=== PATIENT | female | born 1975 ===

== ENCOUNTER 2018-07-25 17:28 | Emergency (ER) | payer MEDICAID ==
[2018-07-25 17:28] VITALS: BMI 26.7
[2018-07-25 17:35] VITALS: BP 139/86; PULSE 111; RESP 12; TEMP 99.1; O2SAT 98
--- NOTE | 2018-07-25 18:52 | ED PDOC ---
Lower Extremity Pain/Injury Time Seen by Provider: 07/25/18 17:36 Chief Complaint (Nursing): Trauma Chief Complaint (Provider): fall injuries History Per: Patient History/Exam Limitations: no limitations Onset/Duration Of Symptoms: Hrs (today) Additional Complaint(s): Tara Garcia is a 43 year old female, with no significant past medical history, who presents to the emergency department after tripping on uneven pavement and fell forward. Pt. now complaining of neck pain, right shoulder pain, right chest wall pain and right knee pain. Pt. had some lower abdominal discomfort initially but improved. She denies any LOC, hip pain or other injuries. No further medical complaints. PMD: None provided. Past Medical History Reviewed: Historical Data, Nursing Documentation, Vital Signs Vital Signs: Last Vital Signs Temp 99.1 F 07/25/18 17:31 Pulse 111 H 07/25/18 17:31 Resp 12 07/25/18 17:31 BP 139/86 07/25/18 17:31 Pulse Ox 98 07/25/18 17:31 - Medical History PMH: Migraine - Surgical History Surgical History: No Surg Hx - Family History Family History: States: Unknown Family Hx - Immunization History Hx Tetanus Toxoid Vaccination: No Hx Influenza Vaccination: No Hx Pneumococcal Vaccination: Yes - Home Medications Home Medications: Ambulatory Orders Medication Instructions Recorded Cyclobenzaprine [Cyclobenzaprine 10 mg PO BID PRN #15 tab 05/13/17 HCl] Naproxen [Naprosyn Tab] 375 mg PO BID PRN #20 tab 05/13/17 Ibuprofen [Motrin] 600 mg PO Q8 #30 tab 03/08/18 Metoclopramide [Reglan] 1 tab PO TID PRN #25 tab 03/08/18 Ibuprofen [Motrin Tab] 600 mg PO Q8 #15 tab 07/25/18 - Allergies Allergies/Adverse Reactions: Allergies Allergy/AdvReac Type Severity Reaction Status Date / Time No Known Allergies Allergy Verified 07/25/18 17:35 Review of Systems ROS Statement: Except As Marked, All Systems Reviewed And Found Negative Musculoskeletal: Positive for: Neck Pain, Arm Pain (right), Leg Pain (right), Other (facial pain) Physical Exam - Reviewed Nursing Documentation Reviewed: Yes Vital Signs Reviewed: Yes - Physical Exam Appears: Positive for: No Acute Distress Head Exam: Positive for: ATRAUMATIC, NORMOCEPHALIC Skin: Positive for: Normal Color, Warm, Dry Eye Exam: Positive for: Normal appearance, EOMI, PERRL Neck: Positive for: Painless ROM, Supple Back: Negative for: Vertebral Tenderness Extremity: Positive for: Normal ROM (upper and lower extremities). Negative for : Tenderness, Deformity, Swelling Neurologic/Psych: Positive for: Alert, Oriented. Negative for: Motor/Sensory Deficits - ECG O2 Sat by Pulse Oximetry: 98 (RA) Pulse Ox Interpretation: Normal - Progress Re-evaluation Time: 19:05 (repeat hr 86) Medical Decision Making Medical Decision Making: Time: 17:36 Initial Impression: Facial and neck pain s/p fall Initial Plan: --Urine --Cervical spine complete [RAD] --Knee 3 views RT [RAD] --Motrin tab 600 mg PO --Reevaluation 20:00 -X-rays came back normal with no visible acute fractures or dislocations. Patient ambulating with steady gait and neurological intact. 20:10 -Upon provider evaluation patient is medically stable, and requires no further treatment in the ED at this time. Patient will be discharged home. Counseling was provided and all questions were answered regarding diagnosis. There is agreement to discharge plan. Return if symptoms persist or worsen. Scribe Attestation: Documented by Kam Moyer, acting as a scribe for Merle Francis PA-C Provider Scribe Attestation: All medical record entries made by the Scribe were at my direction and personally dictated by me. I have reviewed the chart and agree that the record accurately reflects my personal performance of the history, physical exam, medical decision making, and the department course for this patient. I have also personally directed, reviewed, and agree with the discharge instructions and disposition. Disposition - Clinical Impression Clinical Impression: Knee contusion, Chest wall contusion, Cervical strain - Patient ED Disposition Is Patient to be Admitted: No Doctor Will See Patient In The: Office Counseled Patient/Family Regarding: Studies Performed, Diagnosis - Disposition Disposition: Routine/Home Disposition Time: 20:15 Condition: IMPROVED Prescriptions: Ibuprofen [Motrin Tab] 600 mg PO Q8 #15 tab Instructions: Contusion (DC), Cervical Muscle Strain (DC) Forms: [facility] (Polish)
--- NOTE | 2018-07-26 10:57 | RAD ---
Date of service: 07/25/2018 PROCEDURE: Cervical Spine Radiographs. HISTORY: Pain. COMPARISON: None. FINDINGS: BONES: The vertebral bodies are maintained in height. Normal alignment is maintained. There is straightening of the normal lordotic curvature indicating possible muscular spasm. DISC SPACES: Normal. SOFT TISSUES: Normal. No prevertebral soft tissue swelling. OTHER FINDINGS: None. IMPRESSION: No fracture/dislocation. Possible muscular spasm.
--- NOTE | 2018-07-26 10:58 | RAD ---
Date of service: 07/25/2018 PROCEDURE: Right Knee Radiographs. HISTORY: knee pain s/p fall COMPARISON: None. FINDINGS: BONES: Normal. No fracture. JOINTS: Normal. No osteoarthritis. JOINT EFFUSION: None. OTHER FINDINGS: None. IMPRESSION: Normal radiographs of the right knee.
--- NOTE | 2018-07-26 10:58 | RAD ---
Date of service: 07/25/2018 HISTORY: chest pain s/p fall COMPARISON: No prior. TECHNIQUE: Chest PA and lateral FINDINGS: LUNGS: No active pulmonary disease. PLEURA: No significant pleural effusion identified. No pneumothorax apparent. CARDIOVASCULAR: Normal. OSSEOUS STRUCTURES: No significant abnormalities. VISUALIZED UPPER ABDOMEN: Normal. OTHER FINDINGS: None. IMPRESSION: No active disease.
== END 2018-07-25 20:21 | disposition home or self-care (01) ==
LOC: H.ER 17:28
DX: S80.01XA Contusion of right knee, initial encounter (principal); S16.1XXA Strain of muscle, fascia and tendon at neck level, initial encounter; S20.219A Contusion of unspecified front wall of thorax, initial encounter; W19.XXXA Unspecified fall, initial encounter; Y92.480 Sidewalk as the place of occurrence of the external cause